=== PATIENT | male | born 1950 | race Caucasian/White ===

== ENCOUNTER 2017-08-23 10:28 | Outpatient (CLI) | END 2017-08-23 15:43 | disposition home or self-care (01) ==

== ENCOUNTER 2017-10-12 08:52 | Observation (INO) | END 2017-10-13 15:30 | disposition home or self-care (01) ==

== ENCOUNTER 2017-10-25 10:58 | Outpatient (CLI) | END 2017-10-25 15:29 | disposition home or self-care (01) ==